=== PATIENT | female | born 1970 | race Caucasian/White ===

== ENCOUNTER 2022-04-13 16:48 | Inpatient (IN) | payer BC, OTHER ==
[2022-04-13] MEDS ORDERED: Scopolamine 1.5 mg/72 hour Patch ONE (18:13)
[2022-04-13] MEDS ORDERED: Midazolam HCl 2 mg/2 ml Vial ONE ×2 (18:21→18:36)
[2022-04-13] MEDS ORDERED: HYDROmorphone 0.5 MG/0.5 ML SYRINGE ONE ×2 (18:28→20:01)
[2022-04-13] MEDS ORDERED: fentaNYL PF 100 MCG/2 ML SYRINGE ONE ×2 (18:36→20:01)
[2022-04-13] MEDS ORDERED: Bupivacaine HCl 0.5%/Epinephrine 1:200,000/PF 30 ml Vial ONE (18:43)
[2022-04-13] MEDS ORDERED: Famotidine/PF 20 mg/2ml Vial ONE (18:59)
[2022-04-13] MEDS ORDERED: Ondansetron PF 4 MG/2 ML Vial ONE ×3 (19:04→22:36)
[2022-04-13] MEDS ORDERED: Rocuronium Bromide 10 MG/ML (10ML VIAL) ONE (19:04)
[2022-04-13] MEDS ORDERED: PROPOFOL 200 MG/20 ML VIAL ONE (19:04)
[2022-04-13] MEDS ORDERED: Dexamethasone 20 MG/5 ML VIAL ONE (19:04)
[2022-04-13] MEDS ORDERED: Succinylcholine 200 MG/10 ml SYRINGE FS ONE (19:04)
[2022-04-13] MEDS ORDERED: Dextrose 5% in Water 1,000 ML IV PRN (21:05)
[2022-04-13] MEDS ORDERED: hydrALAZINE 20 MG/ML VIAL SLOW IVP PRN (21:05)
[2022-04-13] MEDS ORDERED: Insulin Regular 300 UNITS/3 ML VIAL SC PRN (21:05)
[2022-04-13] MEDS ORDERED: Dextrose 50% Abboject 50 ML SYRINGE SLOW IVP PRN (21:05)
[2022-04-13] MEDS ORDERED: Promethazine HCl 25 MG/ML VIAL IM PRN (21:05)
[2022-04-13] MEDS ORDERED: Hydrocodone-Acetamin 15 ML UDCUP PO PRN (21:05)
[2022-04-13] MEDS ORDERED: HYDROmorphone 2 MG/ML VIAL SLOW IVP PRN (21:18)
[2022-04-13] MEDS ORDERED: Ondansetron HCl/PF 4 MG/2 ML Vial IVP PRN (21:18)
[2022-04-13] MEDS ORDERED: Morphine Sulfate 100 MG in Dextrose 5% in Water 98 ML IV SCH (21:45)
[2022-04-13] MEDS ORDERED: Naloxone HCl 0.4 mg/ml Vial IV PRN (21:45)
[2022-04-13] MEDS ORDERED: diphenhydrAMINE 25 MG CAP PO PRN (21:45)
[2022-04-13] MEDS ORDERED: Ondansetron PF 4 MG/2 ML Vial IVP PRN (21:45)
[2022-04-13] MEDS ORDERED: Piperacillin/Tazobactam 3.375 GM in Sodium Chloride 0.9% 100 ML IVPB SCH (22:00)
[2022-04-13] MEDS ORDERED: Piperacillin/Tazobactam 4.5 GM in Sodium Chloride 0.9% 100 ML IVPB SCH (22:00)
[2022-04-13] MEDS ORDERED: D5 1/2 NS w/20 mEq KCL 1,000 ML ONE (22:30)
[2022-04-13] MEDS: D5 1/2 NS w/20 mEq KCL 1,000 ML IV SCH (23:11)
[2022-04-13] MEDS: Enoxaparin Sodium 40 MG/0.4 ML SYRINGE SC SCH (23:12)
[2022-04-14 02:09] VITALS: BMI 23.1
[2022-04-14] MEDS: Piperacillin/Tazobactam 3.375 GM in Sodium Chloride 0.9% 100 ML IVPB SCH ×3 (02:30→18:03)
[2022-04-14] MEDS: D5 1/2 NS w/20 mEq KCL 1,000 ML IV SCH ×3 (04:45→21:05)
[2022-04-14 06:00] LABS: #Lymphocytes 0.5 thou/uL (1.20-3.40); #Monocytes 0.2 thou/uL (0.11-0.59); %Eosinophils 0.1 % (0.0-10.0); %Monocytes 3.4 % (0.0-10.0); %Neutrophils 88.5 % (42.0-75.0); Hemoglobin 10.6 g/dL (12.0-16.0); Mean Corpuscular HGB CONC 32.8 g/dL (32.0-36.0); Mean Corpuscular Hemoglobin 32.4 pg (27.0-31.0); Mean Corpuscular Volume 98.6 fl (78.0-98.0); Mean Platelet Volume 8.2 fL (7.4-10.4); Platelet Count 178 10x3/uL (130-400); RBC Distribution Width 11.1 % (11.5-14.5); Red Blood Cell (RBC) Count 3.27 mill/uL (4.20-5.40); White Blood Cell (WBC) Count 5.6 10x3/uL (4.8-10.8)
[2022-04-14 06:25] LABS: ALT (SGPT) 49 U/L (8-55); AST (SGOT) 39 U/L (5-34); Albumin 3.5 g/dL (3.5-5.0); Alkaline Phosphatase 121 U/L (40-110); Anion Gap 12 mmol/L (10-20); BUN (Urea Nitrogen) 13 mg/dL (9.8-20.1); Bilirubin, Direct 0.6 mg/dL (0.1-0.3); Bilirubin, Total 1.5 mg/dL (0.2-1.2); Calc. Creatinine Clearance 93 mL/min (70-130); Calcium 8.5 mg/dL (7.8-10.44); Carbon Dioxide 21 mmol/L (22-29); Chloride 107 mmol/L (98-107); Estimated GFR 76; Glucose 146 mg/dL (70-105); Magnesium 1.8 mg/dL (1.6-2.6); Phosphorus 3.5 mg/dL (2.3-4.7); Potassium 4.8 mmol/L (3.5-5.1); Protein, Total 5.7 g/dL (6.0-8.3); Sodium 135 mmol/L (136-145)
[2022-04-14] MEDS: Fluconazole In NaCl,Iso-Osm 200 MG in Premix Bag 1 BAG IVPB SCH (09:09)
[2022-04-14] MEDS: Pantoprazole 40 MG VIAL IVP SCH (09:10)
[2022-04-14] MEDS: Ondansetron PF 4 MG/2 ML Vial IVP PRN (14:28)
[2022-04-14] MEDS: Enoxaparin Sodium 40 MG/0.4 ML SYRINGE SC SCH (21:42)
[2022-04-14] MEDS: diphenhydrAMINE 50 MG/ML VIAL IM/IV PRN (21:49)
[2022-04-15] MEDS: Piperacillin/Tazobactam 3.375 GM in Sodium Chloride 0.9% 100 ML IVPB SCH ×3 (01:34→17:23)
[2022-04-15] MEDS: diphenhydrAMINE 50 MG/ML VIAL IM/IV PRN (01:36)
[2022-04-15] MEDS: Pantoprazole 40 MG VIAL IVP SCH (08:46)
[2022-04-15] MEDS: D5 1/2 NS w/20 mEq KCL 1,000 ML IV SCH (08:46)
[2022-04-15] MEDS: Fluconazole In NaCl,Iso-Osm 200 MG in Premix Bag 1 BAG IVPB SCH (08:46)
[2022-04-15] MEDS: diphenhydrAMINE 50 MG/ML VIAL IVP PRN ×2 (08:47→20:54)
[2022-04-15] MEDS: Ondansetron PF 4 MG/2 ML Vial IVP PRN (11:27)
[2022-04-15] MEDS ORDERED: Multivitamins, Adult 10 ML, TRACE ELEMENT CONCENTRATE 1 ML in D15W-AA 5% with Lytes 2,0... IV SCH (14:00)
[2022-04-15] MEDS ORDERED: Multivitamins, Adult 10 ML, TRACE ELEMENT CONCENTRATE 1 ML in D15W-AA 5% w/o Lytes 2,00... IV SCH (14:00)
[2022-04-15] MEDS ORDERED: [UNRECOGNIZED DRUG - REMARK] IV SCH (14:00)
[2022-04-15] MEDS: Multivitamins, Adult 10 ML, TRACE ELEMENT CONCENTRATE 1 ML in D15W-AA 5% with Lytes 2,0... IV SCH (14:55)
[2022-04-15] MEDS: Enoxaparin Sodium 40 MG/0.4 ML SYRINGE SC SCH (20:41)
[2022-04-16] MEDS: Piperacillin/Tazobactam 3.375 GM in Sodium Chloride 0.9% 100 ML IVPB SCH ×3 (02:07→17:42)
[2022-04-16] MEDS: diphenhydrAMINE 50 MG/ML VIAL IVP PRN ×3 (06:10→23:55)
[2022-04-16 06:26] LABS: #Eosinphils 0.4 thou/uL (0.0-0.7); #Lymphocytes 1.6 thou/uL (1.20-3.40); #Monocytes 0.4 thou/uL (0.11-0.59); #Neutrophils 3.2 thou/uL (1.40-6.50); %Basophils 0.2 % (0.0-1.0); %Eosinophils 7.3 % (0.0-10.0); %Lymphocytes 28.8 % (21.0-51.0); %Monocytes 7.7 % (0.0-10.0); %Neutrophils 55.9 % (42.0-75.0); Hemoglobin 10.3 g/dL (12.0-16.0); Mean Corpuscular Hemoglobin 34.7 pg (27.0-31.0); Mean Corpuscular Volume 99.2 fl (78.0-98.0); Mean Platelet Volume 8.9 fL (7.4-10.4); Platelet Count 219 10x3/uL (130-400); RBC Distribution Width 11.4 % (11.5-14.5); Red Blood Cell (RBC) Count 2.98 mill/uL (4.20-5.40); White Blood Cell (WBC) Count 5.7 10x3/uL (4.8-10.8)
[2022-04-16 06:35] LABS: Anion Gap 10 mmol/L (10-20); BUN (Urea Nitrogen) 14 mg/dL (9.8-20.1); Calc. Creatinine Clearance 69 mL/min (70-130); Calcium 8.5 mg/dL (7.8-10.44); Carbon Dioxide 25 mmol/L (22-29); Chloride 106 mmol/L (98-107); Estimated GFR 53; Glucose 88 mg/dL (70-105); Potassium 4.1 mmol/L (3.5-5.1); Sodium 137 mmol/L (136-145)
[2022-04-16] MEDS: Ondansetron PF 4 MG/2 ML Vial IVP PRN ×2 (08:36→16:51)
[2022-04-16] MEDS: Pantoprazole 40 MG VIAL IVP SCH (08:47)
[2022-04-16] MEDS: Fluconazole In NaCl,Iso-Osm 200 MG in Premix Bag 1 BAG IVPB SCH (08:51)
[2022-04-16] MEDS ORDERED: Iopamidol-370 76% 500 ML 1 ML ONE (11:26)
[2022-04-16] MEDS ORDERED: GASTROGRAFIN 30 ML BOT ONE (11:38)
[2022-04-16] MEDS ORDERED: Multivitamins, Adult 10 ML, TRACE ELEMENT CONCENTRATE 1 ML in D15W-AA 5% with Lytes 2,0... IV SCH (14:00)
[2022-04-16] MEDS ORDERED: D5 1/2 NS w/20 mEq KCL 1,000 ML IV SCH (14:22)
[2022-04-16] MEDS: Enoxaparin Sodium 40 MG/0.4 ML SYRINGE SC SCH (20:09)
[2022-04-16] MEDS: D5 1/2 NS w/20 mEq KCL 1,000 ML IV SCH (23:26)
[2022-04-17] MEDS: Piperacillin/Tazobactam 3.375 GM in Sodium Chloride 0.9% 100 ML IVPB SCH ×2 (02:13→11:00)
[2022-04-17 05:03] LABS: #Eosinphils 0.4 thou/uL (0.0-0.7); #Lymphocytes 1.7 thou/uL (1.20-3.40); #Monocytes 0.5 thou/uL (0.11-0.59); #Neutrophils 2.9 thou/uL (1.40-6.50); %Basophils 0.6 % (0.0-1.0); %Eosinophils 7.6 % (0.0-10.0); %Lymphocytes 30.9 % (21.0-51.0); %Monocytes 9.1 % (0.0-10.0); %Neutrophils 51.8 % (42.0-75.0); Hemoglobin 10.9 g/dL (12.0-16.0); Mean Corpuscular HGB CONC 33.1 g/dL (32.0-36.0); Mean Corpuscular Hemoglobin 32.3 pg (27.0-31.0); Mean Corpuscular Volume 97.4 fl (78.0-98.0); Platelet Count 271 10x3/uL (130-400); RBC Distribution Width 10.7 % (11.5-14.5); Red Blood Cell (RBC) Count 3.37 mill/uL (4.20-5.40); White Blood Cell (WBC) Count 5.6 10x3/uL (4.8-10.8)
[2022-04-17 05:25] LABS: Anion Gap 12 mmol/L (10-20); BUN (Urea Nitrogen) 16 mg/dL (9.8-20.1); Calc. Creatinine Clearance 67 mL/min (70-130); Calcium 8.5 mg/dL (7.8-10.44); Carbon Dioxide 27 mmol/L (22-29); Chloride 102 mmol/L (98-107); Estimated GFR 51; Glucose 88 mg/dL (70-105); Potassium 4.2 mmol/L (3.5-5.1); Sodium 137 mmol/L (136-145)
[2022-04-17] MEDS: Fluconazole In NaCl,Iso-Osm 200 MG in Premix Bag 1 BAG IVPB SCH (09:42)
[2022-04-17] MEDS: Pantoprazole 40 MG VIAL IVP SCH (09:44)
[2022-04-17] MEDS: Hydrocodone-Acetamin 15 ML UDCUP PO PRN ×2 (15:00→20:45)
[2022-04-17] MEDS: Multivitamins, Adult 10 ML, TRACE ELEMENT CONCENTRATE 1 ML in D15W-AA 5% with Lytes 2,0... IV SCH (15:01)
[2022-04-17] MEDS: D5 1/2 NS w/20 mEq KCL 1,000 ML IV SCH (15:50)
[2022-04-17] MEDS: Enoxaparin Sodium 40 MG/0.4 ML SYRINGE SC SCH (20:46)
[2022-04-18] MEDS: Hydrocodone-Acetamin 15 ML UDCUP PO PRN (03:07)
[2022-04-18 06:19] LABS: Anion Gap 11 mmol/L (10-20); BUN (Urea Nitrogen) 16 mg/dL (9.8-20.1); Calc. Creatinine Clearance 79 mL/min (70-130); Calcium 8.6 mg/dL (7.8-10.44); Carbon Dioxide 25 mmol/L (22-29); Chloride 104 mmol/L (98-107); Estimated GFR 62; Glucose 113 mg/dL (70-105); Potassium 4.3 mmol/L (3.5-5.1); Sodium 136 mmol/L (136-145)
[2022-04-18] MEDS: Pantoprazole 40 MG VIAL IVP SCH (08:32)
[2022-04-18] MEDS: D5 1/2 NS w/20 mEq KCL 1,000 ML IV SCH (08:37)
[2022-04-18] MEDS: Ondansetron PF 4 MG/2 ML Vial IVP PRN (12:00)
[2022-04-18] MEDS ORDERED: Ketorolac Tromethamine 30 MG/ML VIAL IVP SCH (14:45)
[2022-04-18] MEDS ORDERED: Midodrine HCl 5 MG TAB PO SCH (15:00)
[2022-04-18 16:04] VITALS: BP 120/75; TEMP 98
== END 2022-04-18 16:14 | disposition home or self-care (01) | DRG 326 ==
LOC: SJX 16:48 → SURG B 22:45
PROVIDERS: ADMIT Specialist; ATTEND Specialist
PROC: 0DQ84ZZ Repair Small Intestine, Percutaneous Endoscopic Approach (ICD-10-PCS; principal; 2022-04-13)
PROC: 0DU647Z Supplement Stomach with Autologous Tissue Substitute, Percutaneous Endoscopic Approach (ICD-10-PCS; 2022-04-13)
DX: K91.89 Other postprocedural complications and disorders of digestive system (principal); K28.5 Chronic or unspecified gastrojejunal ulcer with perforation; K65.9 Peritonitis, unspecified; K63.1 Perforation of intestine (nontraumatic); K66.8 Other specified disorders of peritoneum; K95.81 Infection due to other bariatric procedure; Z98.84 Bariatric surgery status; Z98.890 Other specified postprocedural states; Z90.5 Acquired absence of kidney; Z90.710 Acquired absence of both cervix and uterus
CPT/HCPCS: 36416; 74177; 74240; 80048; 80076; 83735; 84100; 85025; 94760; C9113; J1100; J1170; J1200; J1450; J1642; J1650; J1885; J2250; J2270; J2405; J2543; J2704; J3480; J3490; J7070; Q9963; Q9967; S0028